=== PATIENT | male | born 1965 | race African-American/Black ===

== ENCOUNTER 2020-09-01 11:08 | Emergency (ER) | payer SELFPAY ==
[~2020-09-01] VITALS: Ht 160 cm; Wt 78.0 kg
[2020-09-01 11:08] VITALS: BP 158/95
--- NOTE | 2020-09-01 11:45 | PHYS DOC ---
Past Medical History Past Medical History: Bronchitis, Hypertension Past Surgical History: No Surgical History Smoking Status: Current Every Day Smoker Additional Information: / PPD. Alcohol Use: Heavy Additional Information: PT REPORTS VODKA AND BEER LAST NIGHT (08/31/20) Drug Use: None General Adult EDM: Chief Complaint: ANXIETY/PANIC ATTACK HPI: HPI: Patient is a 55 year old male presenting via EMS for anxiety related shortness of breath. Patient was at home and started to "feel funny" and felt like everything was "rushing". He checked his blood pressure which was normal. Reports he started "pacing" in the room. He had a similar incident a month and half ago and went to the [facility] ED then. He complains of difficulty breathing, but denies chest pain and palpitations. Denies nausea, vomiting, cough, fever or dizziness. Review of Systems: Review of Systems: Constitutional: Denies fever or chills Eyes: Denies redness or eye pain HENT: Denies nasal congestion or sore throat Respiratory: Denies cough. Reports shortness of breath Cardiovascular: Denies chest pain or palpitations GI: Denies abdominal pain, nausea, or vomiting : Denies dysuria or hematuria Musculoskeletal: Denies back pain or joint pain Integument: Denies rash or skin lesions Neurologic: Denies headache, focal weakness or sensory changes Complete systems were reviewed and found to be within normal limits, except as documented in this note. Heart Score: C/O Chest Pain: N/A Physical Exam: PE: Constitutional: Well developed, well nourished, anxious, non-toxic appearance HENT: Normocephalic, atraumatic Eyes: EOMI, conjunctiva normal, no discharge Neck: Normal range of motion, no tenderness, supple Lungs & Thorax: No respiratory distress, O2 sat 100%, equal chest rise and fall Abdomen: Soft, no tenderness Skin: Warm, dry, no erythema, no rash Back: No tenderness, no CVA tenderness Extremities: No tenderness, ROM intact, no edema Neurologic: Alert and oriented X 3, normal motor function, normal sensory function, no focal deficits noted Psychologic: Affect anxious, judgment normal Current Patient Data: Vital Signs: Vital Signs Date Time Temp Pulse Resp B/P (MAP) Pulse Ox O2 Delivery O2 Flow Rate FiO2 09/01/20 11:08 98.5 95 24 158/95 100 Room Air 98.5 EKG: EKG: [] Radiology/Procedures: Radiology/Procedures: [] Course & Med Decision Making: Course & Med Decision Making Patient is a 55 year old male presenting via EMS for anxiety attack. Patient was at home and started to feel anxious. He reports a similar incident a month and half ago and went to the [facility] ED then. Denies chest pain, palpitations, nausea, vomiting, cough, fever or dizziness. Patient likely had a panic attack. Prescribed Ativan for acute symptomatic control and counseled on seeing his PCP/mental health for anxiety treatment. Patient stable for discharge with outpatient follow-up with PCP/mental health. RSI number provided. Discussed findings and plan with patient, who acknowledges understanding and agreement. Vladimir Disclaimer: Vladimir Disclaimer: This electronic medical record was generated, in whole or in part, using a voice recognition dictation system. Departure Departure Impression: Primary Impression: Panic attack Disposition: HOME / SELF CARE / HOMELESS Condition: STABLE Patient Instructions: Anxiety and Panic Attacks, [id number] Additional Instructions: Please call RSI at to seek help for your mental health Scripts Lorazepam (ATIVAN) 0.5 Mg Tablet 0.5 MG PO TID PRN for ANXIETY, #10 TAB Prov: AMADOU QUICK DO 09/01/20 AMADOU QUICK DO Sep 01, 2020 11:45
[2020-09-01] MEDS ORDERED: LORazepam 0.5 MG TABLET PO ONE (12:00)
[2020-09-01] MEDS ORDERED: LORA0.5T96 PO (12:20)
== END 2020-09-01 12:25 | disposition home or self-care (01) ==
LOC: ER 11:08
DX: F41.0 Panic disorder [episodic paroxysmal anxiety] (principal); R06.02 Shortness of breath; I10 Essential (primary) hypertension; F17.200 Nicotine dependence, unspecified, uncomplicated; F10.20 Alcohol dependence, uncomplicated; Y90.9 Presence of alcohol in blood, level not specified
CPT/HCPCS: 99283

== ENCOUNTER 2020-12-29 03:47 | Emergency (ER) | payer SELFPAY ==
[~2020-12-29] VITALS: Ht 167.6 cm; Wt 59.1 kg
[~2020-12-29 03:47] MED LIST: LORA0.5T96 PO
--- NOTE | 2020-12-29 04:14 | PHYS DOC ---
Past Medical History Past Medical History: Bronchitis, Hypertension Past Surgical History: No Surgical History Smoking Status: Current Every Day Smoker Alcohol Use: Heavy Drug Use: None General Adult EDM: Chief Complaint: SHORTNESS OF BREATH HPI: HPI: Patient is a 55 year old male with history of HTN, tobacco abuse who presents with shortness of breath. States that shortness of breath is been worse over the past month. Is worse with exertion. Not associated with chest pain, fever, chills, or cough. Had a negative Covid test 2 weeks ago. States that he has been seen in the emergency department at [facility], and had some work-up including blood work and EKG done. He is unsure of the exact work-up otherwise. [place] that his shortness of breath got worse over the past hour prior to arrival. Denies any lower extremity edema, swelling, redness, recent surgeries, immobilizations, or history of DVT/PE. Review of Systems: Review of Systems: Constitutional: Denies fever or chills. [] Eyes: Denies change in visual acuity. [] HENT: Denies nasal congestion or sore throat. [] Respiratory: Reports shortness of breath, no cough. [] Cardiovascular: Denies chest pain or edema. [] GI: Denies abdominal pain, nausea, vomiting, bloody stools or diarrhea. [] : Denies dysuria. [] Musculoskeletal: Denies back pain or joint pain. [] Integument: Denies rash. [] Neurologic: Denies headache, focal weakness or sensory changes. [] Endocrine: Denies polyuria or polydipsia. [] Lymphatic: Denies swollen glands. [] Psychiatric: Denies depression or anxiety. [] Heart Score: C/O Chest Pain: No Risk Factors: Risk Factors: DM, Current or recent (<one month) smoker, HTN, HLP, family history of CAD, obesity. Risk Scores: Score 0 - 3: 2.5% MACE over next 6 weeks - Discharge Home Score 4 - 6: 20.3% MACE over next 6 weeks - Admit for Clinical Observation Score 7 - 10: 72.7% MACE over next 6 weeks - Early Invasive Strategies Allergies: Allergies: Allergies Coded Allergies Type Severity Reaction Last Updated Verified No Known Drug Allergies 09/01/20 No Physical Exam: PE: Constitutional: Well developed, well nourished, no acute distress, non-toxic appearance. [] HENT: Normocephalic, atraumatic, bilateral external ears normal, oropharynx moist, no oral exudates, nose normal. [] Eyes: PERRLA, EOMI, conjunctiva normal, no discharge. [] Neck: Normal range of motion, no tenderness, supple, no stridor. [] Cardiovascular: Tachycardic Lungs & Thorax: Bilateral breath sounds clear to auscultation [] Abdomen: Bowel sounds normal, soft, no tenderness, no masses, no pulsatile ma sses. [] Skin: Warm, dry, no erythema, no rash. [] Back: No tenderness, no CVA tenderness. [] Extremities: No tenderness, no cyanosis, no clubbing, ROM intact, no edema. [] Neurologic: Alert and oriented X 3, normal motor function, normal sensory function, no focal deficits noted. [] Psychologic: Anxious affect. EKG: EKG: [] Sinus rhythm. Normal axis. QTc 473. Normal [place] and QRS intervals. No ST elevation, ST depression, Q waves, or T wave inversion. Nonischemic EKG. Radiology/Procedures: Radiology/Procedures: [] Course & Med Decision Making: Course & Med Decision Making Pertinent Labs and Imaging studies reviewed. (See chart for details) Patient is a 55-year-old male with history of HTN, smoking who presents with exertional dyspnea that is worse over the past month. No evidence of peripheral edema or pulmonary edema to suggest heart failure. No wheezing to suggest COPD. No fever/chills, cough, or sputum production to suggest a pneumonia. EKG is nonischemic. We will check a troponin, and given duration of symptoms should be sufficient to rule out ACS. Patient is slightly tachycardic, but satting 1 high percent on room air. We will check a D-dimer to attempt to exclude PE. Given smoking history will check CXR to evaluate pulmonary parenchyma for mass, spontaneous pneumothorax etc. 0413 Troponin and dimer negative. Labs with very mild hyponatremia and hypokalemia that are likely not contributory to her symptoms. Does not require acute replacement or hospitalization. Patient is requesting to leave prior to radiology read of his chest x-ray. Per my read there is some slight elevation of the left hemidiaphragm, but I do not see any other acute process. Patient apprised of the risks of leaving prior to complete work-up, and he is excepting of those risks. 050 Vladimir Disclaimer: Vladimir Disclaimer: This electronic medical record was generated, in whole or in part, using a voice recognition dictation system. Departure Departure Impression: Primary Impression: Shortness of breath Disposition: HOME / SELF CARE / HOMELESS Condition: STABLE Referrals: UNKNOWN PCP NAME (PCP) Additional Instructions: Your work-up did not show any evidence of a heart attack or blood clot in your lungs. Your Covid testing is pending. Please self isolate until you know the results of these test. If your symptoms persist it would be very important for you to follow-up with your primary care doctor. If you do not have a PCP, please call the number for the [facility] at [phone]. CARLOS ENGLISH MD Dec 29, 2020 04:14
[2020-12-29 04:15] LABS: BASO # 0.1 x10^3/uL (0.0-0.2); BASO % 1 % (0-3); EOS # 0.2 x10^3/uL (0.0-0.7); EOS % 3 % (0-3); HEMATOCRIT 42.3 % (39.0-53.0); HEMOGLOBIN 14.5 g/dL (13.0-17.5); LYMPH # 1.6 x10^3/uL (1.0-4.8); LYMPH % 26 % (24-48); MEAN CORPUSCULAR HEMOGLOBIN 28 pg (25-35); MEAN CORPUSCULAR HGB CONC 34 g/dL (31-37); MEAN CORPUSCULAR VOLUME 83 fL (79-100); MONO # 0.5 x10^3/uL (0.0-1.1); MONO % 8 % (0-9); NEUT # 4.1 x10^3/uL (1.8-7.7); NEUT % 63 % (31-73); PLATELET COUNT 209 x10^3/uL (140-400); RED BLOOD COUNT 5.09 x10^6/uL (4.30-5.70); RED CELL DISTRIBUTION WIDTH 13.9 % (11.5-14.5); WHITE BLOOD COUNT 6.4 x10^3/uL (4.0-11.0)
[2020-12-29] MEDS ORDERED: IV NORMAL SALINE 1000ML BAG 1,000 ML IV ONE (04:15)
[2020-12-29 04:26] LABS: CALCIUM 8.4 mg/dL (8.5-10.1); CREATININE 0.9 mg/dL (0.7-1.3); POTASSIUM 3.3 mmol/L (3.5-5.1)
[2020-12-29 04:50] VITALS: BP 154/91
--- NOTE | 2020-12-29 05:18 | RAD ---
XR CHEST 1V Clinical History: Reason: exertional dyspnea / Spl. Instructions: / History: Technique: AP view of the chest was obtained at 12/29/2020 4:31 AM. Comparison: None. Findings: The cardiomediastinal silhouette is normal. The pulmonary vasculature is normal. The lungs and pleura l margins are clear. Impression: No evidence of an acute cardiopulmonary process. Electronically signed by: Thony Alas III, MD (12/29/2020 5:16 AM) [facility]
--- NOTE | 2020-12-29 06:46 | EKG ---
[facility] [address] [place] [id number] Test Date: 2020-12-29 Test Time: 04:02:40 Pat Name: RIVER DUBOSE Department: Room: Gender: M Gift Officer: : 1965 Requested By: CARLOS ENGLISH Order Number: [id number] Reading MD: Jasiel Kwan MD Measurements Intervals [place] Rate: 100 P: 40 DE: 156 QRS: 22 QRSD: 96 T: 21 QT: 364 QTc: 473 Interpretive Statements SINUS RHYTHM NON-SPECIFIC ST/T CHANGES Electronically Signed On 12-29-2020 13:38:38 [employer] by Jasiel Kwan MD
--- NOTE | 2020-12-30 10:37 | NUR ---
IP: Attempted to contact pt concerning covid results. No answer, left a voicemail to return the call.
--- NOTE | 2020-12-31 17:04 | NUR ---
IP: Attempted to contact pt a second time concerning covid results. No answer, left a second voicemail to return the call.
== END 2020-12-29 05:09 | disposition home or self-care (01) ==
LOC: ER 03:47
DX: R06.02 Shortness of breath (principal); Z20.822 Contact with and (suspected) exposure to COVID-19; I10 Essential (primary) hypertension; F17.200 Nicotine dependence, unspecified, uncomplicated; F10.20 Alcohol dependence, uncomplicated; Y90.9 Presence of alcohol in blood, level not specified
CPT/HCPCS: 36415; 71045; 80048; 84484; 85025; 85379; 87426; 93005; 96360; 99285; J7030; U0003; U0005